=== PATIENT | female | born 1985 | race Caucasian/White ===

== ENCOUNTER 2023-06-27 10:09 | Outpatient (CLI) | payer OTHER, SELFPAY ==
--- NOTE | ~2023-06-27 | CT_ITS ---
CT of the Abdomen and Pelvis: Indication: Hematuria Technique: 2.5 mm axial scans were obtained through the abdomen and pelvis prior to and following in travenous administration of 130 cc of Omnipaque 350. Dose reduction technique was used on this scan b y utilizing automated exposure control and iterative reconstruction technique. The dose-length produc t (DLP) was 656.45 mGy-cm. Findings: Scans through the lung bases are unremarkable. The liver, spleen, pancreas, gallbladder, adrenals and left kidney are within normal limits. 8 mm non obstructing right renal stone present. No evidence of aortic aneurysm. No lymphadenopathy. No bowel obstruction or bowel wall thickening. There is no evidence to suggest acute appendicitis. Images through the pelvis were performed. Urinary bladder unremarkable. No pelvic mass seen. No ascit es. Impression: 8 mm nonobstructing right renal stone. Reviewed, dictated and finalized at [facility]. Impression: 8 mm nonobstructing right renal stone.
--- NOTE | ~2023-06-27 | XR_ITS ---
Supine and upright views of the abdomen Clinical history: Hematuria Findings: Bowel gas pattern is nonspecific. No evidence for obstruction or free air. Possible 5 mm ri ght renal stone versus bowel contents. Osseous structures are intact. Impression: Possible 5 mm right renal stone versus bowel contents. Reviewed, dictated and finalized at [facility]. Impression: Possible 5 mm right renal stone versus bowel contents.
[2023-06-27 10:55] LABS: Estimated Glomerular Filt Rate > 60
== END 2023-06-27 10:10 ==
LOC: MICIMG 10:11
PROVIDERS: PCP Nurse Practitioner Family; Visit Provider Nurse Practitioner Family
DX: N20.0 Calculus of kidney (principal)
CPT/HCPCS: 74018; 74178; Q9967

== ENCOUNTER 2023-07-16 14:26 | Outpatient (CLI) | payer OTHER, SELFPAY ==
[2023-07-16 15:12] LABS: INR 1.1; Prothrombin Time 14.7 Seconds (11.1-14.7)
[2023-07-16 15:13] LABS: Partial Thromboplastin Time 29.5 Seconds (22.3-36.8)
== END 2023-07-16 14:27 | disposition home or self-care (01) ==
LOC: ANHSURGERY 14:32
PROVIDERS: PCP Nurse Practitioner Family; Visit Provider Urology
DX: N20.0 Calculus of kidney (principal); Z01.818 Encounter for other preprocedural examination
CPT/HCPCS: 36415; 85610; 85730; 87086

== ENCOUNTER 2023-07-20 00:47 | Day surgery (SDC) | payer OTHER, SELFPAY ==
[2023-07-12 08:55] VITALS: BMI 19.1
--- NOTE | 2023-07-12 09:01 | PC.NURSE ---
Report to the Outpatient Waiting Room, entrance under the green pavilion located off [facility], at time _0600_ on date _[id number]_. Planned Procedure Time: _0730_. Time changes happen often and if your time is changed the preop area will call you the afternoon before. - You and your visitor will be asked to self-screen and do not enter if you have any COVID symptoms. - A mask is optional within the hospital at this time. Patients may have clear liquids (water, carbonated beverages, clear teas, apple juice) until 3 hours prior to surgery with a maximum of 20 ounces. - No food from midnight until time of surgery Take the following medications with a SIP of water the morning of surgery: __None DO NOT STOP ANY OF YOUR OTHER PRESCRIPTION MEDICATIONS PRIOR TO SURGERY ?EXCEPT THE FOLLOWING Medications to discontinue per physician None Date to take last dose Please no make-up, nail kyrgyz, hairspray, perfume, deodorant, or body powder the day of surgery. No jewelry (including any body piercings) or valuables the day of surgery, leave them at home. Please take a shower or bath the night before, or the morning of, surgery with an antibacterial soap. Wear comfortable, loose fitting clothing. - Jewelry must be removed prior to entering the operating room. Rings and piercings that are not removed may be cut off. - The hospital will not accept responsibility for valuables. - Please leave all valuables, including medications, at home the day of surgery. If you are going home after surgery, a licensed electric mule driver must drive you home. - NO public transportation without another adult if you receive anesthesia. - We recommend that an adult stay with you for 24 hours following discharge. - We also recommend that you do not drive, make important decision, drink alcoholic beverages, or take any drugs that were not prescribed by your health care provider for at least 24 hours after your discharge time. Follow any additional instructions given to you from your surgeon. If you or anyone in your household have experienced Covid symptoms in the past week, please notify your surgeon or the nurse liaison at the phone number below for possible testing. Telephone instructions given to __Deanna__and asked if any additional questions and then verbalized understanding. Patient advised to call surgeon office or pre surgery nurse liaison [phone] if any additional questions.
[2023-07-20] VITALS (9 sets, daily range): BP systolic 86–110; BP diastolic 62–86; PULSE 59–114; RESP 13–16; TEMP 36.1–36.6; O2SAT 98–100; BMI 18.5
--- NOTE | ~2023-07-20 | XR_ITS ---
XR abdomen/kub 1V 07/20/2023 06:40 Indication: Right renal stone Procedure: KUB Comparison: CT dated 06/27/2023 and KUB dated 06/27/2023 Findings: Bowel gas pattern nonobstructive. Moderate colonic fecal loading. There is a cluster of rig ht renal stones at the L2 level. No acute osseous abnormality. Impression: 1: Right nephrolithiasis. Reviewed, dictated and finalized at location B. Impression: 1: Right nephrolithiasis.
--- NOTE | 2023-07-20 06:22 | WPDHPUPDATE1 ---
History and Physical Update Update Date/Time: 07/20/23 06:22 History and Physical has been reviewed, including an updated exam of the patient. There are NO changes in the patient's condition. Risks, benefits, and alternatives have been discussed and questions answered. Patient agrees to proceed with procedure.
[2023-07-20] MEDS: LACTATED RINGERS 1,000 ML 30 ML IV CONT (06:50)
--- NOTE | 2023-07-20 07:00 | WPDANESEPPF ---
Anes - Initial Pre Proc Eval Procedure: Operation Date: 07/20/23 07:30 Proposed Procedures p Right Extracorporeal Shock Wave Lithotripsy - Anthony Snell MD s Cystoscopy with Possible Right Stent Placement - Anthony Snell MD Date/Time: 07/20/23 07:00 Surgeon: Anthony Snell MD Pre Op Diagnosis: Rt Renal Stone, Gross Hematuria Patient Data Age: 37 Gender: F Height: 1.7 m Weight: 53.6 kg Last Vital Signs Temp 97.9 F 07/20/23 06:40 Pulse 69 07/20/23 06:40 Resp 16 07/20/23 06:40 BP 106/74 07/20/23 06:40 Pulse Ox 100 07/20/23 06:40 O2 Del Method Room Air 07/20/23 06:40 Allergies Allergy/AdvReac Type Severity Reaction Status Date / Time No Known Allergies Allergy Verified 07/20/23 06:57 Home Medications Medication Instructions Recorded Confirmed Type No Home Medications 07/12/23 07/12/23 History Patient hx anesthesia problems: none Family hx anesthesia problems: none Results Review: All pre-operative results and documents have been reviewed as part of the pre-operative evaluation. [facility] Social History Social History Smoking status: Never smoker Living arrangements: with family Spiritual care concerns: No Anes - Eval Final PreProcedure Day of Procedure 07/20/23 07:00 Patient weight: normal Heart: regular rate and rhythm Lungs: clear to auscultation Airway: Mallampati scale class 1 Neurological: alert and oriented Last oral intake: >/= 8 hours ASA classification: I Emergent: no Anesthetic plan: proceed Anesthesia type and monitoring: general LMA and standard monitoring Results Review: All pre-operative results and documents have been reviewed as part of the pre-operative evaluation. Pt active w wt lifting, no cp or sob. Informed Consent: The patient's anesthetic plan and its attendant risks and benefits were discussed with the patient/family/POA. Questions were solicited and answers provided to the satisfaction of the patient/family/POA.
[2023-07-20] MEDS: ceFAZolin 2 GM/D5W 50 ML 2 GM/50 ML BAG IVPB (07:24)
--- NOTE | 2023-07-20 07:34 | P.OP_ITS ---
Procedure Note - Detailed Date of Procedure 07/20/23 Pre-op Diagnosis Rt Renal Stone, Gross Hematuria Post-op Diagnosis Same Procedure Performed Flexible cystoscopy, right ESWL Surgeon Anthony Snell MD Anesthesia General Description of Procedure The patient was brought to the operative suite where she was placed in the frog- legged position on the Dornier lithotripter table. Flexible cystoscopy was undertaken with a 16F flexible cystoscopy. Her urethra and bladder neck were endoscopically normal. The bladder mucosa was normal and there was a single, orthotopic ureteral orifice bilaterally. The patient was then repositioned in the supine position and the focal point of the lithotriptor was placed at a 8x4mm left right renal calculus. A total of 2000 shocks were delivered at a power setting of 1-3. There appeared to be good fragmentation of the stone. The patient tolerated the procedure well and was taken to the recovery room in good condition. Drains No Packing No Pathology None sent Complications No immediate complications Condition Stable
[2023-07-20] MEDS: LIDOCAINE HCL 2% GEL UROJET 10 ML PKG MUCOUS MEM (08:00)
[2023-07-20] MEDS: KETOROLAC 15 MG/ML VIAL (*BKC) IV PUSH (08:08)
== END 2023-07-20 09:52 | disposition home or self-care (01) ==
PROVIDERS: PCP Nurse Practitioner Family; Visit Provider Urology
PROC: (CPT 50590; principal; 2023-07-20 07:30)
PROC: (CPT 52352; 2023-07-20 07:30)
DX: N20.0 Calculus of kidney (principal); R31.0 Gross hematuria
CPT/HCPCS: 50590; 36415; 74018; 85610; 85730; 87086; C1769; J0690; J1100; J1885; J2250; J2405; J2704; J3010; J7030; J7120

== ENCOUNTER 2023-08-03 13:44 | Outpatient (CLI) | payer OTHER, SELFPAY ==
--- NOTE | ~2023-08-03 | XR_ITS ---
XR abdomen/kub 1V Ordering provider: Anthony Snell MD History: . F/U SURGERY Calculus of kidney X 2 WEEKS . Comparison: July 20, 2023 FINDINGS: BOWEL: Nonobstructive bowel gas pattern. Fecal material is loaded in the colon. ORGANOMEGALY: None. SIGNIFICANT PATHOLOGIC CALCIFICATIONS: Stones seen in the previous study are not well demonstrated du e to overlapping fecal material. OTHER: No free air is seen under the diaphragm. IMPRESSION: NO definite ACUTE ABDOMINAL FINDINGS. Stones seen in the previous study are not well demonstrated due to overlapping fecal material. Constipation. Reviewed, dictated and finalized at location A.
== END 2023-08-03 13:45 | disposition home or self-care (01) ==
PROVIDERS: PCP Nurse Practitioner Family; Visit Provider Nurse Practitioner Family
DX: R31.0 Gross hematuria (principal); K59.00 Constipation, unspecified
CPT/HCPCS: 74018

== ENCOUNTER 2023-10-01 19:07 | Emergency (ER) | payer OTHER, SELFPAY ==
--- NOTE | ~2023-10-01 | XR_ITS ---
EXAMINATION: XR wrist RT min 3V DATE: 10/01/2023 19:50 INDICATION: Right wrist pain. TECHNIQUE: 4 views of right wrist were obtained. COMPARISON: None. FINDINGS: Alignment is normal. No fracture. Joint spaces are normal. IMPRESSION: 1. Normal right wrist. Reviewed, dictated and finalized at location A. IMPRESSION: 1. Normal right wrist.
[2023-10-01 19:18] VITALS: BP 118/73; PULSE 92; RESP 20; TEMP 37.2; O2SAT 100
--- NOTE | 2023-10-01 20:02 | ED.GENADULT ---
HPI - General Adult General Chief complaint: Extremity Injury, Upper Stated complaint: Right Wrist Injury Source: patient Mode of arrival: ambulatory Limitations: no limitations History of Present Illness HPI narrative: 37-year-old female presented for complaint of right wrist pain and swelling after injury yesterday. She states while running she tripped and fell, but is unsure how she landed on the Extremity. Denies numbness, tingling, weakness. Also endorses she was bit by a dog and reports some pain and swelling to the inner forearm. Applying ice and taking ibuprofen. Related Data Home Medications Medication Instructions Recorded Confirmed No Home Medications 10/01/23 10/01/23 Allergies Allergy/AdvReac Type Severity Reaction Status Date / Time No Known Allergies Allergy Verified 07/20/23 06:57 Review of Systems Review of Systems: CONSTITUTIONAL: Denies body aches, fever, chills CARDIOVASCULAR: Denies chest pain, palpitations, or edema. RESPIRATORY: Denies cough or dyspnea. GASTROINTESTINAL: Denies abdominal pain, nausea, vomiting, or diarrhea. SKIN: Denies rash, itching, or wounds. MUSCULOSKELETAL: reports right wrist pain Denies back pain, joint pain, or myalgia. NEUROLOGIC: Denies headache, numbness, tingling, or weakness. All systems reviewed & are unremarkable except as noted in HPI and below PMFSH Social History Social History Smoking status: Never smoker Living arrangements: with family Spiritual care concerns: No Comments At time of signature, I have reviewed and agree with nursing past medical, surgical, social and family history unless otherwise noted. Please see nursing chart for further information. There is no relevant family history pertinent to the presenting complaint Exam Narrative: GENERAL: Well-appearing. CHEST: Speaks in full sentences. No respiratory distress. HEART: Regular rate and rhythm. Normal and equal peripheral pulses. EXTREMITIES: Right hand has normal strength and sensation, limited range of motion with flexion/extension/rotation right wrist due to pain with movement. moderate swelling and ecchymosis, point tenderness to distal radius and ulna.No obvious deformity; alignment normal, Superficial abrasions to volar surface of right forearm due to animal bite. pulse palpable and equal bilaterally, skin warm, dry, pink. Capillary refill less than 3 seconds. SKIN: Warm, dry NEURO: Alert and oriented x3. Course Course Emergency Course: Patient is aware of diagnosis, understands and agrees to treatment plan. Anticipatory guidance given. Patient agrees to follow-up as directed and is aware of reasons to seek care at the emergency department. Portions of this record may have been created with voice recognition software Level of Care: Express Care Visit Vital Signs Vital signs: Vital Signs Temperature 99.0 F 10/01/23 19:18 Pulse Rate 92 10/01/23 19:18 Respiratory Rate 20 10/01/23 19:18 Blood Pressure 118/73 10/01/23 19:18 Pulse Oximetry 100 10/01/23 19:18 Oxygen Delivery Room Air 10/01/23 19:18 Temperature 99.0 F 10/01/23 19:18 Pulse Rate 92 10/01/23 19:18 Respiratory Rate 20 10/01/23 19:18 Blood Pressure 118/73 10/01/23 19:18 Pulse Oximetry 100 10/01/23 19:18 Oxygen Delivery Room Air 10/01/23 19:18 Reviewed Medical Decision Making MDM Narrative Medical decision making narrative: Discussed physical exam findings Consistent with wrist sprain. Reviewed x-ray with patient. Declined Raad wrap. Advised supportive measures and signs/symptoms to go to the ER. Pt is appropriate for outpt treatment and f/u. Differential Diagnosis Differential Diagnosis: sprain/strain of wrist, Colles' fracture, wrist fracture, hand fracture, finger sprain, dislocation of finger, gout, cellulitis, arthritis, tendonitis Vital Signs Vital Signs: Vital Signs Te
== END 2023-10-01 20:10 | disposition home or self-care (01) ==
PROVIDERS: Emergency Provider Nurse Practitioner Family
DX: S63.501A Unspecified sprain of right wrist, initial encounter (principal); S66.911A Strain of unspecified muscle, fascia and tendon at wrist and hand level, right hand, initial encounter; W01.0XXA Fall on same level from slipping, tripping and stumbling without subsequent striking against object, initial encounter; Y93.02 Activity, running
CPT/HCPCS: 73110; 99213; G0463